=== PATIENT | female | born 1950 | race Caucasian/White ===

== ENCOUNTER 2021-04-18 04:58 | Day surgery (SDC) | payer MEDICARE, OTHER, BC ==
[2021-04-18] MEDS ORDERED: Lactated Ringers 1,000 ML IV SCH (06:15)
[2021-04-18] MEDS ORDERED: Cyanocobalamin (Vitamin B12) 1,000 MCG/ML SDV IM ONE (06:30)
[2021-04-18] MEDS ORDERED: fentaNYL 100 MCG/2 ML SDV ONE (07:12)
[2021-04-18] MEDS ORDERED: Propofol 200 MG/20 ML SDV ONE (07:12)
[2021-04-18] MEDS ORDERED: Midazolam 1 MG/ML 2 ML SDV ONE (07:12)
[2021-04-18] MEDS ORDERED: MVI, Adult with Vitamin K 10 ML, Thiamine 200 MG, Zinc/Copper/Manganese/Selenium 1 ML i... IV ONE ×4 (07:15)
--- NOTE | 2021-04-25 17:52 | OR ---
DATE OF PROCEDURE: 04/18/2021 SURGEON: Jere Lundberg MD PREOPERATIVE DIAGNOSIS: Heartburn, nausea, and upper abdominal pain status post Keith-en-Y gastric bypass. POSTOPERATIVE DIAGNOSES: 1. Heartburn, nausea, and upper abdominal pain status post Keith-en-Y gastric bypass. 2. Very mild pouch gastritis, but markedly enlarged gastric pouch. PROCEDURE PERFORMED: Upper gastrointestinal endoscopy with gastric pouch biopsies for CLOtest. ANESTHESIA: IV sedation. INDICATION FOR PROCEDURE: A 70-year-old female presenting with ongoing heartburn, nausea, and upper abdominal pain. She is status post an open Keith-en-Y gastric bypass done in 2006 at [facility]. The plan is to proceed with upper GI endoscopy with biopsies and/or dilation as indicated. Potential risks including bleeding and perforation were discussed, and the patient wishes to proceed. DETAILS OF PROCEDURE: The patient was taken to the operating room and placed in a left lateral decubitus position. IV sedation was administered after which the upper GI endoscope was passed orally through the length of the esophagus into the gastric pouch, and from there, through the gastrojejunostomy roughly 20 cm into the Keith limb. Findings included normal hypopharynx, larynx, upper esophageal sphincter, and esophageal body. Most of the inflammation was noted at the esophagogastric junction. Within the stomach, there was very mild patchy redness, and there was otherwise no stricturing at the gastrojejunostomy nor was there any inflammation or signs of marginal ulcer at that level. The remainder of the visualized portions of the jejunum were unremarkable. The most striking finding in this case was the patient having a very large gastric pouch which was measured at 11 cm from the esophagogastric junction to the gastrojejunostomy. This likely could lead to a high output of the acid and the patient's attendant symptoms. At this point, biopsies were obtained from the gastric pouch and sent for CLOtest for H pylori. Minimal bleeding from the biopsy site was seen and the procedure was then concluded. In the past, the patient declined use of proton pump inhibitors as she is concerned about reports of these causing some dementia. She will be started on Pepcid 20 mg b.i.d., which is an entirely different class of drugs, and postoperative, she is agreeable to that. The patient will be following up with Brittany Lynn in roughly one month. If the patient's symptoms remain as they are, consideration for revision of the gastric bypass with reduction of the pouch size to the now more commonly noted level of the pouch being 1 to 2 cm. Jere Lundberg MD /[id number]
== END 2021-04-18 10:30 | disposition home or self-care (01) ==
LOC: JP.SDS 04:58
PROVIDERS: ATTEND Surgery
DX: K29.70 Gastritis, unspecified, without bleeding (principal); I10 Essential (primary) hypertension; E11.9 Type 2 diabetes mellitus without complications; K21.9 Gastro-esophageal reflux disease without esophagitis; Z98.84 Bariatric surgery status
CPT/HCPCS: 43239; 87081; J2250; J2704; J3010; J3411; J7120